=== PATIENT | male | born 1985 | race Caucasian/White ===

== ENCOUNTER 2017-01-07 17:29 | Emergency (ER) | payer OTHER ==
--- NOTE | ~2017-01-07 | CT2 ---
[facility] A Service of [facility] RADIOLOGY TEXT RESULTS PATIENT: HAKEEM EARL LOCATION: MARIO : 85 UNIT #: [id number] AGE: [address]: Houston Mdcaniel MD SEX: M ORDER DR: [id number] [place] [place] [address] [facility]. [place], [place] [address] [id number] MR#: [id number] Acc #: [id number] NAME: HAKEEM EARL : 1985 SEX: M STUDY DATE/TIME: 01/07/2017 20:26 UNIT: MARIO ROOM: STUDY DESCRIPTION: CT Abd and Pelv W Cont Attending Physician: Houston Mcdaniel M.D. Ordering Physician: Houston Mcdaniel M.D. Primary Care Physician: Roldan Leavitt M.D. MEDICAL IMAGING REPORT This report is preliminary unless electronic signature is present EXAM CT of the abdomen and pelvis. INDICATION Abdominal pain. Rectal bleeding. Nausea and dizziness. TECHNIQUE CT of the abdomen and pelvis utilizing 100 mL Isovue-370 IV contrast. Coronal and sagittal reconstructions were obtained. This CT exam was performed with one or more of the following radiation dose reduction techniques: automatic exposure control, adjustment of mA and/or kV according to patient size, and iterative reconstruction. COMPARISON None available. FINDINGS ABDOMEN: There is diffuse hepatic steatosis. There is a focal fatty sparing adjacent to the gallbladder fossa. The gallbladder is not distended. The pancreas is normal. Spleen, adrenal glands, and kidneys are within normal limits. The bowel is not dilated. The abdominal aorta is normal in caliber. The appendix is normal. PELVIS: No pelvic mass. No enlarged pelvic or inguinal lymph nodes. Bladder is unremarkable. No acute osseous abnormalities. IMPRESSION 1. No acute findings in the abdomen or pelvis. 2. Hepatic steatosis. [facility] A Service of [facility] RADIOLOGY TEXT RESULTS PATIENT: HAKEEM EARL LOCATION: [facility] : 85 UNIT #: [id number] AGE: [address]: Houston Mcdaniel MD SEX: M ORDER DR: Dictated by... Isaac Cutler M.D. THIS IS AN ELECTRONICALLY VERIFIED REPORT Isaac Cutler M.D. at 01/08/2017 2:22 AM MONCHO/issa TD: 01/08/2017 00:50 JOB #: [id number] MEDICAL IMAGING REPORT Page 1 of 1 COPY
[~2017-01-07 17:29] MED LIST: ALBUTEROL17 GM INH; ALPRAZOLAM PO; ALPRAZOLAM0.5 MG PO; ESCITALOPRAM OX20 MG PO; HYDROXYZINE HCL50 MG PO; INDERAL LA60 M1 PO; KLONOPIN PO; LEXAPRO PO; SEROQUEL XR150 MG PO; SINGULAIR PO; TYLENOL500 MG PO; ZYRTEC PO
[2017-01-07 18:58] LABS: BASOPHIL% 0.5 % (0-2.5); EOSINOPHIL# 0.2 X10e3 (0-0.7); EOSINOPHIL% 2.6 % (0.0-7.0); HEMATOCRIT 41.8 % (38.0-50.0); HEMOGLOBIN 14.3 gm/dL (13.0-16.0); LYMPHOCYTE# 2.8 X10e3 (1.0-3.5); LYMPHOCYTE% 35.1 % (17.0-45.0); MEAN CELL VOLUME 91.4 FL (83-96); MEAN CORPUSCULAR HEMOGLOBIN 31.2 PG (28-34); MEAN CORPUSCULAR HGB CONC 34.2 g/dL (30-36); MONOCYTE# 0.8 X10e3 (0-1.0); MONOCYTE% 9.3 % (3.0-12.0); NEUTROPHIL# 4.2 X10e3 (1.5-7.1); NEUTROPHIL% 52.5 % (40-75); PLATELET COUNT 311 X10e3 (140-420); RED BLOOD COUNT 4.57 X10e (3.90-5.60)
[2017-01-07 19:00] LABS: DIFF IND NO
[2017-01-07 19:10] LABS: INR 0.9; PARTIAL THROMBOPLASTIN TIME 25.7 SECONDS (23.5-31.3); PROTHROMBIN TIME (PATIENT) 9.9 SECONDS (9.6-11.5)
[2017-01-07 19:26] LABS: ALBUMIN SERUM 4.3 g/dL (3.5-5.0); ALKALINE PHOSPHATASE 57 U/L (32-92); ALT (SGPT) 48 U/L (10-40); AST (SGOT) 30 U/L (10-42); BILIRUBIN,TOTAL 0.6 mg/dL (0.2-2.0); BLOOD UREA NITROGEN 12 mg/dL (9-23); BUN/CREATININE RATIO 13.33; CALCIUM SERUM 9.3 mg/dL (8.4-10.2); CARBON DIOXIDE 30 mmol/L (22-31); CHLORIDE 105 mmol/L (100-111); CREATININE SERUM 0.9 mg/dL (0.6-1.4); GLOM FILT RATE Estimated 113.4 mL/min (>60); GLUCOSE FASTING 99 mg/dL (70-110); PROTEIN TOTAL SERUM 7.3 g/dL (6.0-8.3); SODIUM 141 mmol/L (135-145)
[2017-01-07 19:27] LABS: BILIRUBIN, DIRECT <0.1 mg/dL (0.0-0.2); BILIRUBIN,INDIRECT 0.5 mg/dL (0.0-0.9)
== END 2017-01-07 21:35 | disposition home or self-care (01) ==
LOC: CED 17:29
PROVIDERS: Emergency Medicine
DX: R10.84 Generalized abdominal pain (principal); R11.2 Nausea with vomiting, unspecified; R19.7 Diarrhea, unspecified; F41.9 Anxiety disorder, unspecified; I10 Essential (primary) hypertension; J45.909 Unspecified asthma, uncomplicated
CPT/HCPCS: 36415; 74177; 80048; 80076; 85025; 85610; 85730; 96374; 96375; 99284; J2270; J2405; Q9967

== ENCOUNTER 2017-01-13 18:40 | Inpatient (IN) | payer OTHER ==
--- NOTE | ~2017-01-13 | CO ---
Unit #: [id number] #: [id number] Patient: HAKEEM SALAS [id number] [address] [place], [place] [address] [id number] I MR#: [id number] NAME: HAKEEM SALAS ROOM: 227 Age: 31 Sex: M Admission Date: 01/13/2017 : 1985 Attending Physician: Inocencio Jacobs M.D. Primary Care Physician: Roldan Leavitt M.D. Consultation Date: 01/14/2017 CONSULTATION REPORT REASON FOR CONSULTATION Blood in the stool, diarrhea. HISTORY OF PRESENTING ILLNESS Mr. Salas is a 31-year-old gentleman with generalized anxiety disorder, asthma and irritable bowel syndrome. His history changed twice while I was talking to him. He initially said he has no bleeding and then said "oh, I forgot." He has been complaining of severe abdominal pain, mostly on the left side, with nausea and vomiting. However, has not had any vomiting since last night. He had (1) bowel movements since last night. Apparently complained of diarrhea and bleeding earlier. Seems to be having a small amount of bleeding, possibly from hemorrhoids. He does have chronic irregular bowel movements, mostly diarrhea, and previously diagnosed with irritable bowel syndrome. He admits to doing marijuana. ALLERGIES None. MEDICATIONS Medications at home include: 1. Seroquel. 2. Xanax. 3. Wellbutrin. 4. Ranitidine. 5. Bentyl. 6. Lexapro. 7. Inderal. SOCIAL HISTORY Denies alcohol for the last two years. Denies smoking. Does do marijuana. FAMILY HISTORY Noncontributory. PHYSICAL EXAMINATION VITAL SIGN: Vital signs are stable, afebrile. Temperature 98, pulse 90, respirations 22, blood pressure 149/89. GENERAL: No acute distress. HEENT: Pupils equal and reactive. NECK: No JVD, no lymphadenopathy. CHEST: Clear to auscultation bilaterally. CARDIOVASCULAR SYSTEM: Regular rate and rhythm. No murmurs. ABDOMEN: Mild tenderness, left more than right. No guarding, no rebound, Unit #: [id number] #: [id number] Patient: SPRINKLE,HAKEEM no organomegaly or ascites. EXTREMITIES: Without clubbing, cyanosis or edema. NEUROLOGICAL: Intact. SKIN: Warm and dry. DIAGNOSTIC STUDIES LABORATORY: Hemoglobin of 13.9, white count of 15.2, platelets 258. Coags are normal. Chemistry shows creatinine of 3.3. It was 1.9 yesterday. LFTs with AST of 102, ALT of 123. Amylase and lipase are normal. Tox screen positive for benzodiazepines, marijuana, opiates as well as TCA. ASSESSMENT AND PLAN 1. The patient was here for abdominal pain, more so on the left than right. Amylase, lipase and CT scan negative for acute pancreatitis. Partial gastritis secondary to drug use versus others. Will give symptomatic treatment for now and plan on getting an upper endoscopy looking for ulcers or other gastric pathology. 2. Diarrhea, appears to be chronic, with small amount of bleeding: Will benefit from stool testing as well as colonoscopy which can be even done as an outpatient. 3. Substance abuse. 4. Chronic back pain. Thank you, Dr. Jacobs, for this interesting consult. Will follow along. Dictated by... Wilfrido Irwin M.D. MARY/dov TD: 01/14/2017 12:29 JOB #: [id number] CONSULTATION REPORT Page 1 of 1 X Wilfrido Irwin MD X CONSULTATION REPORT
--- NOTE | ~2017-01-13 | XA166 ---
[facility] A Service of [facility] & [facility] RADIOLOGY TEXT RESULTS PATIENT: HAKEEM EARL LOCATION: C2A : 85 UNIT #: [id number] AGE: [address]: Inocencio Jacobs MD SEX: M ORDER DR: [id number] [address] [place], [place] [address] [id number] I MR#: [id number] Acc #: [id number] NAME: HAKEEM EARL : 1985 SEX: M STUDY DATE/TIME: 01/15/2017 13:51 UNIT: C2A ROOM: [facility] STUDY DESCRIPTION: XA PICC Line Placement WO Port Attending Physician: Inocencio Jacobs M.D. Ordering Physician: Inocencio Jacobs M.D. Primary Care Physician: Roldan Leavitt M.D. MEDICAL IMAGING REPORT This report is preliminary unless electronic signature is present EXAM PICC line insertion INDICATION IV access PRE-PROCEDURE The procedure was explained to the patient and/or patient security representative including risks, benefits, potential complications and potential for alternative forms of treatment. Informed consent was obtained, and prior to initiating the procedure a formal timeout procedure was performed. PROCEDURE Using full standard sterile barrier technique, including caps, gowns, gloves, masks, as well as sterile skin preparation and standard sterile draping, the right arm was prepped and draped in the usual fashion, and real-time sterile ultrasound guidance was used to localize an arm vein and to confirm vessel patency. A hard copy ultrasound image was recorded. After local anesthesia with 1% Xylocaine, the right basilic vein was punctured using real-time sterile ultrasound guidance, and an 0.018 guidewire was advanced into the superior vena cava, using fluoroscopic guidance. A 40 cm double lumen 5-Swazi PICC was then measured and deployed with the tip positioned in the superior vena cava. The position of the line was documented with a radiographic image. The line was secured in place with an adhesive dressing and an antibiotic patch was applied. Total fluoro time was 0.1 minutes. A single fluoroscopic spot image was obtained. The reference air kerma is 2 mGy/cm. IMPRESSION 1. Successful placement of a 5-Swazi double-lumen Power PICC via the right arm under ultrasound and fluoroscopic guidance. The tip of the [facility] A Service of [facility] RADIOLOGY TEXT RESULTS PATIENT: HAKEEM EARL LOCATION: C2A 227-01 : 85 UNIT #: [id number] AGE: [address]: Inocencio Jacobs MD SEX: M ORDER DR: PICC is in good position in the superior vena cava. 2. A single fluoroscopic spot image was obtained. 3. Successful right arm PICC line placement. Dictated by... Mart Murray M.D. THIS IS AN ELECTRONICALLY VERIFIED REPORT Mart Murray M.D. at 01/16/2017 7:15 AM DARIO/feli TD: 01/15/2017 23:57 JOB #: [id number] MEDICAL IMAGING REPORT Page 1 of 1 COPY
--- NOTE | ~2017-01-13 | DS ---
Unit #: [id number] #: [id number] Patient: HAKEEM EARL [id number] [address] [place], [place] [address] [id number] I MR#: [id number] NAME: HAKEEM EARL ROOM: 227 Age: 31 Sex: M Admission Date: 01/13/2017 : 1985 Discharge Date: 01/17/2017 Attending Physician: Inocencio Jacobs M.D. Primary Care Physician: Roldan Leavitt M.D. DISCHARGE SUMMARY PRINCIPAL DISCHARGE DIAGNOSES 1. Acute kidney injury, felt to be secondary to acute tubular necrosis. 2. Nausea, vomiting and diarrhea or unclear etiology with esophagogastroduodenoscopy showing mild gastritis: Biopsy is pending at the time of dictation. 3. Elevated liver function tests. 4. Fatty live disease. 5. Polysubstance abuse. 6. Generalized anxiety disorder. 7. History of asthma. 8. Hypertension. 9. Paroxysmal supraventricular tachycardia. 10. CPK was elevated. PROCEDURES EGD with biopsy by Dr. Irwin on 01/15/17. CONSULTANTS 1. Dr. Wilfrido Irwin - GI Services. 2. Dr. Aline Mckeon - Nephrology. REASON FOR HOSPITALIZATION 31-year-old white male with a history of generalized anxiety disorder, hypertension, PSVT, asthma, irritable bowel syndrome, was here on the 07 of January with rectal bleeding, seen in the emergency room. CBC was normal. Coags were normal. CMP was normal except for an ALT of 48. CT scan of the abdomen and pelvis showed no active disease except for fatty liver disease. The patient was discharged home to follow up with GI which he had not seen when re-presented to the emergency room with persistent nausea, vomiting, diarrhea, abdominal pain, mucus in his stools, and was found to have acute kidney injury and admitted for same. On admission, the patient was afebrile. His vital sins were within normal limits. CMP was normal except for a CO2 of 20, blood sugar 125, creatinine 1.3 which pina to 3.3 the following morning. GFR was 46, magnesium was normal. Amylase and lipase were normal. AST was 102, ALT 123, white count 19.1. Hemoglobin and platelets were normal. Urinalysis - 3+ protein. Cardiac enzymes normal. Urine drug screen positive for benzodiazepines, which he is on; marijuana, Unit #: [id number] #: [id number] Patient: MAYA EARLIN opiates and TCAs which he did not have prescriptions for, and the patient was admitted. HOSPITAL COURSE The patient had acute abdominal series which was within normal limits. He was made NPO except for his Inderal and Xanax. GI was consulted. Nephrology was consulted. He was placed on Lovenox for DVT prophylaxis and Pepcid for GI prophylaxis and possible treatment of gastritis or peptic ulcer disease. He underwent endoscopy, upper EGD on the showing small hiatal hernia, moderate gastritis. Biopsies were taken. Normal duodenum was noted. The patient's diet was slowly advanced thereafter. His renal function improved. Liver functions improved. He remained afebrile. Vital signs remained within normal limits. His CPK was elevated and his likely diagnosis was rhabdomyolysis as well as acute kidney injury from ATN. His IV fluids were changed to half normal saline with sodium bicarb to alkalinize his urine. Again, he quickly improved. Stool for C. diff toxin was ordered but is still pending at the time of dictation or not done. Stool for salmonella and shigella were negative as well as campylobacter. His CMP and CPK on the day of discharge were completely normal except for creatinine of 1.8, GFR of 49, AST 77, ALT 142. CPK was down to 241 where it had been 894 and up to 912. CBC on the day of discharge was completely within normal limits. He was discharged home on his regular medicines, to follow up with Dr. Leavitt in one week. His discharge meds are as follows: 1. Inderal 60 mg p.o. b.i.d. 2. Seroquel XR 400 mg q. h.s. 3. Xanax XR 3 mg b.i.d. 4. Wellbutrin 150 mg q. a.m. 5. Zantac 150 mg b.i.d. 6. Bentyl 20 mg four times daily p.r.n. 7. Lexapro 20 mg p.o. daily. Dictated by... Inocencio Jacobs M.D. VALE/dov TD: 01/20/2017 09:07 JOB #: [id number] DISCHARGE SUMMARY Page 1 of 1 X Inocencio Jacobs MD DISCHARGE SUMMARY
--- NOTE | ~2017-01-13 | OR ---
Unit #: [id number] #: [id number] Patient: HAKEEM EARL [id number] [address] [address] [id number] I MR#: [id number] NAME: HAKEEM EARL ROOM: 227 Date of Procedure: 01/15/2017 Admission Date: 01/13/2017 Surgeon: Wilfrido Irwin M.D. : 1985 Attending Physician: Inocencio Jacobs M.D. Primary Care Physician: Roldan Leavitt M.D. OPERATIVE REPORT PROCEDURE PERFORMED Esophagogastroduodenoscopy with biopsy. INDICATIONS FOR PROCEDURE Significant left upper quadrant pain, negative CT scan and lab work, undergoing evaluation with upper endoscopy. MEDICATIONS Monitored anesthesia. POSTOPERATIVE FINDINGS 1. Small hiatal hernia. 2. Moderate gastritis. Biopsy was taken. 3. Normal duodenum and distal duodenum. PLAN Continue PPI and symptomatic treatment. DESCRIPTION OF PROCEDURE The patient was explained of the procedure, risks, and benefits along with risks and benefits of anesthesia. He was brought to the endoscopy room. Propofol anesthesia was given. Bite block was placed. The scope was passed down the mouth into the esophagus, stomach, duodenum, and distal duodenum. Findings as described. Biopsy was taken. Gently, I pulled it out of the patient's mouth. He tolerated it well. Dictated by... Germania Pritchett/beatrice TD: 01/15/2017 15:24 JOB #: [id number] Unit #: [id number] #: [id number] Patient: HAKEEM EARL OPERATIVE REPORT Page 1 of 1 X Wilfrido Irwin MD X PROCEDURE OPERATIVE NOTE
--- NOTE | ~2017-01-13 | CO ---
Unit #: [id number] #: [id number] Patient: HAKEEM SALAS [id number] [address] [place], [place] [address] [id number] I MR#: [id number] NAME: HAKEEM SALAS ROOM: 227 Age: 31 Sex: M Admission Date: 01/13/2017 : 1985 Attending Physician: Inocencio Jacobs M.D. Primary Care Physician: Roldan Leavitt M.D. CONSULTATION REPORT REASON FOR CONSULTATION Acute renal failure. HISTORY OF PRESENT ILLNESS Mr. Salas is a 31-year-old white male with generalized anxiety disorder, hypertension, asthma and irritable bowel syndrome. He was just discharged last week related to some rectal bleeding. CT scan done last week showed no abdominal problems other than hepatic steatosis. On the 07 of January, his creatinine was 0.9. He presented to the emergency room yesterday with nausea, vomiting and abdominal pain. His creatinine was abnormal at 1.9. Today, it has worsened to 3.3. He has received IV fluids in the form of normal saline. He has not received any IV contrast or any other nephrotoxic agents that I can identify. He is on no NSAIDs at home. He does tell me has chronic diarrhea and that is unchanged. He says he does no IV drugs but does smoke marijuana. He did have a CAT scan on 01/07/2017 with IV contrast. PAST MEDICAL HISTORY Anxiety disorder, hypertension, asthma, irritable bowel syndrome with chronic diarrhea. PAST SURGICAL HISTORY He reports no prior surgical history. SOCIAL HISTORY He is trying to get disability for anxiety disorder. He does not smoke or drink. He has a 12-year-old daughter. FAMILY HISTORY Negative for kidney disease. HOME MEDICINES 1. Inderal 60 mg b.i.d. 2. Seroquel 400 mg q.h.s. 3. Xanax 3 mg b.i.d. 4. Wellbutrin 150 mg daily. 5. Ranitidine 150 mg b.i.d. 6. Bentyl 20 mg four times a day. 7. Lexapro 20 mg daily. REVIEW OF SYSTEMS He denies chest pain, orthopnea or pedal edema. He denies urinary symptoms. No fever or chills. He does complain of abdominal pain, nausea, vomiting but none today. He has also had no diarrhea today. Unit #: [id number] #: [id number] Patient: HAKEEM SALAS Other 13 systems reviewed and unless noted are negative. PHYSICAL EXAMINATION GENERAL APPEARANCE: He is an overweight white male in no acute distress. He is very power. VITAL SIGNS: Blood pressure 116/68. Temperature 98.6. His blood pressure ranged up to 145/94. HEENT: Extraocular muscles are intact. No eye drainage or icterus. Oropharynx is clear. NECK: Supple without JVD, thyromegaly or carotid bruit. CHEST: Clear to auscultation bilaterally. CARDIAC: S1, S2. Normal sinus rhythm. No gallop or rub. ABDOMEN: Soft, nontender, nondistended. Positive bowel sounds. EXTREMITIES: No cyanosis, clubbing or edema. DIAGNOSTIC STUDIES LABORATORY: Glucose 117, BUN 23, creatinine 2.3, sodium 138, potassium 4, chloride 104, bicarbonate 24, calcium 8.8, magnesium 2.6, albumin 4.7, AST 102, ALT 123. Amylase 16, lipase 13. Hemoglobin is 13.9, WBC count 15.2, platelet count 258. Urinalysis shows protein 3+, blood is trace, RBC 2 to 5, WBC 2 to 5. ASSESSMENT AND PLAN 1. Acute kidney injury. He has proteinuria on urinalysis. He has recent nausea, vomiting and dehydration and he has recent contrast study on January 07, 2017. All of these factors may play a role in his acute kidney injury. He looks dry on exam. I would continue IV fluids, avoid hypotension, avoid AMANDA inhibitors and NSAIDs. A CPK will also be checked. A urinalysis will be repeated. He has a history of severe acute renal failure two years ago that resolved with IV fluids. The CT scan of the abdomen done on 01/07/2017 did not show any renal abnormalities. 2. Nausea, vomiting, abdominal pain. He is going to have an EGD tomorrow. He had a negative CT scan with IV contrast on January 07, 2017. 3. Anxiety disorder. He has not taken [place]. 4. Marijuana abuse. Thank you very much for allowing me to see Mr. Salas in consultation. We will follow closely with you. Dictated by... Aline Mckeon M.D. AYANNA/jazmine TD: 01/15/2017 08:02 JOB #: [id number] Unit #: [id number] #: [id number] Patient: MADYHAKEEM CONSULTATION REPORT Page 1 of 1 X Aline Mckeon MD X CONSULTATION REPORT
--- NOTE | ~2017-01-13 | HP ---
Unit #: [id number] #: [id number] Patient: HAKEEM EARL [id number] [address] [place], [place] [address] [id number] I MR#: [id number] NAME: HAKEEM EARL ROOM: 227 Age: 31 Sex: M Admission Date: 01/13/2017 : 1985 Attending Physician: Inocencio Jacobs M.D. Primary Care Physician: Roldan Leavitt M.D. HISTORY AND PHYSICAL HISTORY OF PRESENT ILLNESS 31-year-old white male with a history of generalized anxiety disorder, hypertension, PSVT, asthma, irritable bowel syndrome. He was here on the of this month with rectal bleeding, seen in the emergency room. CBC at that time was completely within normal limits. PT and PTT were within normal limits. CMP was normal except for an ALT of 48. CT scan of the abdomen and pelvis showed no active disease but hepatic steatosis. The patient was discharged to followup with GI but then re-presented to the emergency room on the with nausea, vomiting, diarrhea and mucus in his stools, lower abdominal pain and acute kidney injury and is admitted. ALLERGIES The patient has no known drug allergies. MEDICATIONS Meds prior to admission: 1. Inderal 60 mg p.o. b.i.d. 2. Seroquel XR 400 mg q. h.s. 3. Xanax XR 3 mg b.i.d. 4. Wellbutrin XL 150 mg q. a.m. 5. Ranitidine 150 mg b.i.d. 6. Bentyl 20 mg p.o. q.i.d. p.r.n. 7. Lexapro 20 mg p.o. daily. PAST SURGICAL HISTORY He has no surgical history. PAST MEDICAL HISTORY 1. Again, PSVT. 2. Generalized anxiety disorder. 3. Hypertension. 4. Asthma. 5. Irritable bowel syndrome. SOCIAL HISTORY Disabled, not . No tobacco or alcohol use. Denies street drug use. FAMILY HISTORY Noncontributory. PHYSICAL EXAMINATION GENERAL: He is awake, alert, oriented x3, in no acute distress. VITAL SIGNS: Afebrile. Pulse 90, respirations 22, blood pressure 149/89. Unit #: [id number] #: [id number] Patient: HAKEEM EARL O2 sat 98% on room air. HEENT: Unremarkable. NECK: Supple without JVD, bruits, adenopathy or thyromegaly. CHEST: Clear to auscultation. HEART: Regular rate and rhythm without any murmurs, rubs or gallops. ABDOMEN: Soft, nondistended and positive bowel sounds. Tender in both lower quadrants, left greater than right, without any guarding or rebound tenderness. EXTREMITIES: No clubbing, cyanosis or edema. /RECTAL: Deferred. NEUROLOGICAL: Grossly intact. DIAGNOSTIC STUDIES LABORATORY: Cardiac enzymes normal. CMP normal except for CO2 of 20, blood sugar of 125, creatinine of 1.9 which is up to 3.3 this morning. GFR was 46, now is 23.6. Magnesium is normal. Amylase and lipase were normal. AST was 102, ALT 123. White count 19.1, hemoglobin 15.7, platelets 312,000. Urinalysis - 3+ protein. Urine drug screen positive for benzodiazepines, marijuana, opiates and TCAs. IMAGING: CT scan as mentioned above. IMPRESSION 1. Nausea, vomiting, diarrhea, abdominal pain, bright red blood per rectum. 2. Acute kidney injury. 3. Elevated liver function tests. 4. Fatty liver disease. 5. Polysubstance abuse. 6. Generalized anxiety disorder. 7. Paroxysmal supraventricular tachycardia. 8. Hypertension. 9. Asthma. PLAN NPO except for Inderal. Will consult GI for endoscopy, consult nephrology for acute kidney injury. Lovenox dose adjusted for renal insufficiency for DVT prophylaxis. Pepcid for GI prophylaxis. Follow labs. Further evaluation pending results of the above. Dictated by Inocencio Jacobs M.D. VALE/dov TD: 01/14/2017 08:26 JOB #: [id number] Unit #: [id number] #: [id number] Patient: HAKEEM EARL HISTORY AND PHYSICAL Page 1 of 1 X Inocencio Jacobs MD HISTORY AND PHYSICAL
--- NOTE | ~2017-01-13 | CR2 ---
[facility] A Service of [facility] & [facility] RADIOLOGY TEXT RESULTS PATIENT: HAKEEM EARL LOCATION: C2A 227-01 : [birth year] UNIT #: [id number] AGE: [address]: Inocencio Jacobs MD SEX: M ORDER DR: [id number] [facility] [address] [facility]. [place], [place] [address] [id number] MR#: [id number] Acc #: [id number] NAME: HAKEEM EARL : 1985 SEX: M STUDY DATE/TIME: 01/13/2017 21:51 UNIT: C2A ROOM: 227 STUDY DESCRIPTION: CR Abdomen Acute Series Attending Physician: Inocencio Jacobs M.D. Ordering Physician: Inocencio Jacobs M.D. Primary Care Physician: Roldan Leavitt M.D. MEDICAL IMAGING REPORT This report is preliminary unless electronic signature is present EXAM Acute abdomen series 6 views, 01/13/2017 HISTORY Vomiting, dehydration, low back pain, generalized weakness beginning today. FINDINGS Single frontal view of the chest taken at the time of the abdominal examination is within normal limits. AP, supine, and upright examination of the abdomen shows a normal gas and fecal pattern distribution throughout large and small bowel without distended loops in either area. There is no indication of extraluminal air, unusual visceromegaly, or soft tissue density mass. The renal definitions are fairly well demarcated and normal in shape and size. No abnormal intra-abdominal calcifications are present. IMPRESSION Normal acute abdomen series. Dictated by... Chris Nayak M.D. THIS IS AN ELECTRONICALLY VERIFIED REPORT Chris Nayak M.D. at 01/14/2017 10:42 AM MARISSA/tavo TD: 01/14/2017 08:07 JOB #: [id number] MEDICAL IMAGING REPORT Page 1 of 1 COPY
[2017-01-13 20:16] LABS: BASOPHIL% 0.1 % (0-2.5); HEMATOCRIT 44.8 % (38.0-50.0); HEMOGLOBIN 15.7 gm/dL (13.0-16.0); LYMPHOCYTE# 1.3 X10e3 (1.0-3.5); LYMPHOCYTE% 6.9 % (17.0-45.0); MEAN CELL VOLUME 88.6 FL (83-96); MEAN CORPUSCULAR HEMOGLOBIN 31.1 PG (28-34); MEAN PLATELET VOLUME 8.3 FL (6.5-11.5); MONOCYTE# 2.2 X10e3 (0-1.0); MONOCYTE% 11.6 % (3.0-12.0); NEUTROPHIL# 15.5 X10e3 (1.5-7.1); NEUTROPHIL% 81.4 % (40-75); PLATELET COUNT 312 X10e3 (140-420); RED BLOOD COUNT 5.06 X10e (3.90-5.60); RED CELL DISTRIBUTION WIDTH 13.3 % (11.0-15.5); WHITE BLOOD COUNT 19.1 X10e3 (4.0-10.5)
[2017-01-13 20:19] LABS: DIFF IND YES
[2017-01-13 20:24] LABS: POC - CKMB 2.7 ng/mL (0.0-7.9); POC - TROPONIN <0.05 ng/mL (<=0.05)
[2017-01-13 20:30] LABS: ALBUMIN SERUM 4.7 g/dL (3.5-5.0); BILIRUBIN, DIRECT 0.2 mg/dL (0.0-0.2); BILIRUBIN,INDIRECT 0.7 mg/dL (0.0-0.9); BILIRUBIN,TOTAL 0.9 mg/dL (0.2-2.0); BUN/CREATININE RATIO 10.52; CALCIUM SERUM 9.6 mg/dL (8.4-10.2); CREATININE SERUM 1.9 mg/dL (0.6-1.4); POTASSIUM 3.6 mmol/L (3.5-5.1)
[2017-01-13 20:39] LABS: PLATELET ESTIMATE NORMAL (NORMAL)
[2017-01-14] MEDS ORDERED: INDERAL60 MG PO (01:10)
[2017-01-14 01:12] LABS: URINE SOURCE CLEAN CATCH
[2017-01-14] MEDS ORDERED: SEROQUEL XR400 M1 PO (01:13)
[2017-01-14 01:15] LABS: URINE APPEARANCE CLEAR; URINE BILIRUBIN NEG (NEG); URINE BLOOD TRACE (NEG); URINE COLOR YELLOW; URINE GLUCOSE NEG (NEG); URINE KETONE NEG (NEG); URINE LEUKOCYTE ESTERASE NEG (NEG); URINE NITRATE NEG (NEG); URINE PROTEIN 3+ (NEG); URINE SPECIFIC GRAVITY 1.013 (1.003-1.035); URINE UROBILINOGEN 0.2 MG/DL (NEG)
[2017-01-14] MEDS ORDERED: XANAX PO (01:16)
[2017-01-14 01:18] LABS: URINE BACTERIA AUWI NEG (NEGATIVE); URINE SQUAMOUS EPITHELIAL CELL OCC /[HPF]
[2017-01-14] MEDS ORDERED: WELLBUTRIN XL150 M2 PO (01:19)
[2017-01-14] MEDS ORDERED: ACID CONTROL150 M1 PO (01:19)
[2017-01-14] MEDS ORDERED: BENTYL20 MG PO (01:21)
[2017-01-14] MEDS ORDERED: LEXAPRO20 MG PO (01:22)
[2017-01-14 01:25] LABS: CULTURE INDICATED? NO
[2017-01-14 01:26] LABS: AMPHETAMINE NEG (NEG); BARBITURATES NEG (NEG); BENZODIAZEPINES POS (NEG); COCAINE NEG (NEG); MARIJUANA POS (NEG); OPIATES POS (NEG); TRICYCLIC ANTIDEPRESSANTS POS (NEG); U METHADONE NEG (NEG)
[2017-01-14 05:38] LABS: BASOPHIL% 0.1 % (0-2.5); HEMATOCRIT 41.1 % (38.0-50.0); HEMOGLOBIN 13.9 gm/dL (13.0-16.0); LYMPHOCYTE# 1.6 X10e3 (1.0-3.5); LYMPHOCYTE% 10.8 % (17.0-45.0); MEAN CELL VOLUME 90.7 FL (83-96); MEAN CORPUSCULAR HEMOGLOBIN 30.8 PG (28-34); MEAN CORPUSCULAR HGB CONC 33.9 g/dL (30-36); MEAN PLATELET VOLUME 8.4 FL (6.5-11.5); MONOCYTE# 1.8 X10e3 (0-1.0); MONOCYTE% 11.9 % (3.0-12.0); NEUTROPHIL# 11.7 X10e3 (1.5-7.1); NEUTROPHIL% 77.2 % (40-75); PLATELET COUNT 258 X10e3 (140-420); RED BLOOD COUNT 4.53 X10e (3.90-5.60); RED CELL DISTRIBUTION WIDTH 13.4 % (11.0-15.5); WHITE BLOOD COUNT 15.2 X10e3 (4.0-10.5)
[2017-01-14 05:40] LABS: DIFF IND NO
[2017-01-14 06:13] LABS: BUN/CREATININE RATIO 6.96; CALCIUM SERUM 8.8 mg/dL (8.4-10.2); CREATININE SERUM 3.3 mg/dL (0.6-1.4); GLOM FILT RATE Estimated 23.6 mL/min (>60); MAGNESIUM 2.6 mg/dL (1.6-3.0)
[2017-01-14 17:36] LABS: URINE APPEARANCE CLEAR; URINE BILIRUBIN NEG (NEG); URINE BLOOD NEG (NEG); URINE COLOR YELLOW; URINE GLUCOSE NEG (NEG); URINE KETONE NEG (NEG); URINE LEUKOCYTE ESTERASE NEG (NEG); URINE NITRATE NEG (NEG); URINE PH 5.5 (5-8); URINE PROTEIN 1+ (NEG); URINE SPECIFIC GRAVITY 1.007 (1.003-1.035); URINE UROBILINOGEN 0.2 MG/DL (NEG)
[2017-01-14 17:39] LABS: U HYALINE CASTS AUWI 0-2 /[LPF]; URBCS1 AUWI 0-2 /[HPF] (0-2); URINE BACTERIA AUWI NEG (NEGATIVE); URINE SQUAMOUS EPITHELIAL CELL NONE SEEN /[HPF]; UWBCS1 AUWI 0-2 (0-5)
[2017-01-14 17:45] LABS: CREATININE,RANDOM URINE 83 mg/dL; SODIUM URINE RANDOM 34 mmol/L; TOTAL PROTEIN,RANDOM URINE 24 mg/dl (<10)
[2017-01-15 01:19] LABS: CREATININE,RANDOM URINE 79 mg/dL; SODIUM URINE RANDOM 57 mmol/L; TOTAL PROTEIN,RANDOM URINE 14 mg/dl (<10)
[2017-01-15 05:51] LABS: HEMATOCRIT 38.3 % (38.0-50.0); MEAN CELL VOLUME 90.6 FL (83-96); MEAN CORPUSCULAR HEMOGLOBIN 30.8 PG (28-34); MEAN CORPUSCULAR HGB CONC 33.9 g/dL (30-36); MEAN PLATELET VOLUME 8.1 FL (6.5-11.5); RED BLOOD COUNT 4.23 X10e (3.90-5.60); RED CELL DISTRIBUTION WIDTH 13.3 % (11.0-15.5); WHITE BLOOD COUNT 11.1 X10e3 (4.0-10.5)
[2017-01-15 06:14] LABS: ALBUMIN SERUM 3.8 g/dL (3.5-5.0); BUN/CREATININE RATIO 6.96; CALCIUM SERUM 8.8 mg/dL (8.4-10.2); CREATININE SERUM 3.3 mg/dL (0.6-1.4); GLOM FILT RATE Estimated 23.6 mL/min (>60); PHOSPHOROUS 3.8 mg/dL (2.5-4.6); POTASSIUM 4.5 mmol/L (3.5-5.1); PROTEIN TOTAL SERUM 6.9 g/dL (6.0-8.3); URIC ACID 6.7 mg/dL (2.6-7.2)
[2017-01-16 05:49] LABS: HEMATOCRIT 34.1 % (38.0-50.0); HEMOGLOBIN 11.9 gm/dL (13.0-16.0); MEAN CELL VOLUME 89.8 FL (83-96); MEAN CORPUSCULAR HEMOGLOBIN 31.3 PG (28-34); MEAN CORPUSCULAR HGB CONC 34.9 g/dL (30-36); RED BLOOD COUNT 3.8 X10e (3.90-5.60); RED CELL DISTRIBUTION WIDTH 13.1 % (11.0-15.5); WHITE BLOOD COUNT 8.5 X10e3 (4.0-10.5)
[2017-01-16 08:09] LABS: ALBUMIN SERUM 3.5 g/dL (3.5-5.0); BILIRUBIN,TOTAL 0.8 mg/dL (0.2-2.0); CALCIUM SERUM 8.7 mg/dL (8.4-10.2); CREATININE SERUM 2.5 mg/dL (0.6-1.4); POTASSIUM 3.8 mmol/L (3.5-5.1); PROTEIN TOTAL SERUM 6.4 g/dL (6.0-8.3); URIC ACID 4.1 mg/dL (2.6-7.2)
[2017-01-17 06:05] LABS: BASOPHIL% 0.4 % (0-2.5); EOSINOPHIL# 0.1 X10e3 (0-0.7); EOSINOPHIL% 1.7 % (0.0-7.0); HEMATOCRIT 38.7 % (38.0-50.0); HEMOGLOBIN 13.3 gm/dL (13.0-16.0); LYMPHOCYTE# 1.9 X10e3 (1.0-3.5); MEAN CELL VOLUME 90.2 FL (83-96); MEAN CORPUSCULAR HEMOGLOBIN 30.9 PG (28-34); MEAN CORPUSCULAR HGB CONC 34.3 g/dL (30-36); MEAN PLATELET VOLUME 8.5 FL (6.5-11.5); MONOCYTE# 0.9 X10e3 (0-1.0); NEUTROPHIL# 4.8 X10e3 (1.5-7.1); NEUTROPHIL% 61.9 % (40-75); PLATELET COUNT 241 X10e3 (140-420); RED BLOOD COUNT 4.29 X10e (3.90-5.60); RED CELL DISTRIBUTION WIDTH 12.9 % (11.0-15.5); WHITE BLOOD COUNT 7.7 X10e3 (4.0-10.5)
[2017-01-17 06:11] LABS: DIFF IND NO
[2017-01-17 07:09] LABS: ALBUMIN SERUM 3.9 g/dL (3.5-5.0); BILIRUBIN,TOTAL 0.9 mg/dL (0.2-2.0); BUN/CREATININE RATIO 8.88; CALCIUM SERUM 9.6 mg/dL (8.4-10.2); CREATININE SERUM 1.8 mg/dL (0.6-1.4); GLOM FILT RATE Estimated 49.1 mL/min (>60); PROTEIN TOTAL SERUM 7.4 g/dL (6.0-8.3)
== END 2017-01-17 08:40 | disposition home or self-care (01) | DRG 683 ==
LOC: CED 18:40 → CEDOF 21:14 → C2A 21:14 → CED 21:53 → CEDOF 21:53 → C2A 23:56
PROVIDERS: Emergency Medicine; Internal Medicine; Internal Medicine Nephrology
PROC: B548ZZA Ultrasonography of Superior Vena Cava, Guidance (ICD-10-PCS; 2017-01-15)
PROC: 0DB68ZX Excision of Stomach, Via Natural or Artificial Opening Endoscopic, Diagnostic (ICD-10-PCS; principal; 2017-01-15 11:45)
PROC: 02HV33Z Insertion of Infusion Device into Superior Vena Cava, Percutaneous Approach (ICD-10-PCS; 2017-01-15 11:45)
DX: N17.0 Acute kidney failure with tubular necrosis (principal); K92.1 Melena; M62.82 Rhabdomyolysis; K76.0 Fatty (change of) liver, not elsewhere classified; I47.1 Supraventricular tachycardia; R80.9 Proteinuria, unspecified; K58.0 Irritable bowel syndrome with diarrhea; J45.909 Unspecified asthma, uncomplicated; E86.0 Dehydration; G89.29 Other chronic pain; M54.9 Dorsalgia, unspecified; I10 Essential (primary) hypertension; F41.1 Generalized anxiety disorder; F12.10 Cannabis abuse, uncomplicated; R94.5 Abnormal results of liver function studies; K29.70 Gastritis, unspecified, without bleeding
CPT/HCPCS: 36415; 74022; 76937; 77001; 80048; 80053; 80076; 80307; 81003; 82150; 82550; 82553; 82570; 83690; 83735; 83874; 84100; 84156; 84300; 84484; 84550; 85025; 85027; 87045; 87427; 87899; 88305; 88312; 96361; 96374; 99285; C1751; C9113; J1650; J2250; J2270; J2405; J2550

== ENCOUNTER 2017-02-13 14:35 | Emergency (ER) | payer OTHER ==
[~2017-02-13 14:35] MED LIST changes: +ACID CONTROL150 M1 PO; +BENTYL20 MG PO; +INDERAL60 MG PO; +LEXAPRO20 MG PO; +SEROQUEL XR400 M1 PO; +WELLBUTRIN XL150 M2 PO; +XANAX PO
== END 2017-02-13 16:25 | disposition home or self-care (01) ==
LOC: CED 14:35
DX: Z76.0 Encounter for issue of repeat prescription (principal); F41.9 Anxiety disorder, unspecified
CPT/HCPCS: 99281